=== PATIENT | female | born 1975 | race Caucasian/White ===

== ENCOUNTER 2019-08-19 | Inpatient (IN) | payer MEDICARE, OTHER ==
[~2019-08-19] MED LIST: ABILIFY10 MG OR; ACETTAB3 OR; AMBIEN5 MG OR; ANAPROX DS550 MG OR; ATIVAN0.5 MG OR; BACTRIM DS1 TAB OR; CEPHALEXIN500 MG PO; CIPRO500 MG OR; CLEOCIN150 M1 PO; COUMADIN1 MG OR; COUMADIN10 MG OR; COUMADIN10 MG PO; COUMADIN5 MG PO; COUMADIN7.5 MG PO; DIGITEK0.25 MG OR; DIGOXIN0.05 MG/ML OR; DIGOXIN0.25 MG PO; FIORICET OR; FIORICET PO; FLAGYL500 MG OR; FLEXERIL OR; FLUOXETINE40 MG OR; FLUOXETINE40 MG PO; FOLIC ACID1 MG PO; IMITREX25 MG PO; LAMICTAL100 MG PO; LAMICTAL200 M1 OR; LAMICTAL200 M1 PO; LAMICTAL200 MG OR; LAMICTAL25 M1 OR; LANOXIN0.25 MG OR; LASIX 80 MG TAB80 M1 PO; LASIX40 MG PO; LISINOPRIL10 MG PO; LORTAB 5 OR; LORTAB 5/3255 MG PO; LORTAB 7.5 OR; LORTAB5 PO; LOVASTATIN20 M1 PO; LUPIN OR; METHOCARBAM500 MG PO; METHOTREXATE2.5 MG PO; NEURONTIN300 MG OR; NEURONTIN300 MG PO; NORCO1 TA1 PO; PERCOCET1 TA4 PO; PHENERGAN25 MG/TAB PO; PROMETHAZINE25 MG OR; PROZAC20 MG PO; PROZAC40 MG; PROZAC40 MG OR; PROZAC40 MG PO; RELPAX20 MG OR; RESTORIL15 M1 OR; RESTORIL15 MG OR; RESTORIL30 MG OR; RIFADIN300 MG OR; RYBIX ODT50 MG; SARAFEM15 MG OR; SOMA350 MG PO; TEMAZEPAM15 MG OR; TORADOL PO; TRAMADOL HCL50 MG OR; ULTRAM50 M1 PO; ULTRAM50 MG OR; VICODIN ES1 TAB OR; VISTARIL25 MG OR; WARFARIN1 MG PO; WARFARIN5 MG PO; WARFARIN7.5 MG PO; XANAX1 MG OR; XANAX1 MG PO; ZESTRIL5 MG PO; ZOFRAN ODT4 MG OR; ZOFRAN ODT4 MG PO; ZOFRAN4 MG/TAB PO; [UNRECOGNIZED DRUG - OTHER]
[2019-08-19 21:20] LABS: HEMATOCRIT 31.5 % (37.0-47.0); HEMOGLOBIN 10.1 g/dl (12.0-16.0); IMMATURE GRANULOCYTES 0.3 % (0.0-5.0); MEAN CELL VOLUME 84.2 fL CALC (80.0-100.0); MEAN CORPUSCULAR HGB CONC 32.1 g/L CALC (32.0-36.0); NEUT# 5.8 thou/uL (2.00-7.15); RED BLOOD COUNT 3.74 mill/uL (4.20-5.60)
[2019-08-19 21:34] LABS: ALBUMIN 3.9 g/dL (3.2-5.0); ALKALINE PHOSPHATASE 88 u/l (38-126); ANION GAP 10 (6-22 (CALC)); BUN 20 mg/dL (7-17); BUN/CREATININE RATIO 29 (12-20 (CALC)); CARBON DIOXIDE 29 mmol/l (22-30); CHLORIDE 101 mmol/l (95-108); CREATININE 0.7 mg/dL (0.5-1.0); GFR > 60 ML/MIN (>=60 (CALC)); GFR FOR AFR.AMER. > 60 ML/MIN (>=60 (CALC)); POTASSIUM 3.6 mmol/l (3.5-5.1); SGOT/AST 31 u/l (14-36); SODIUM 137 mmol/l (137-146); TOTAL PROTEIN 7.1 g/dL (6.3-8.2)
[2019-08-19 21:40] LABS: BILIRUBIN, TOTAL 0.6 mg/dL (0.0-1.4)
[2019-08-19 21:47] LABS: MYOGLOBIN 17 ng/mL (0 - 62)
[2019-08-19] MEDS ORDERED: METHOCARBAM750 MG PO (22:34)
[2019-08-19] MEDS ORDERED: CARVEDILOL6.25 MG PO (22:35)
[2019-08-19] MEDS ORDERED: ALEVE220 M2 PO (22:36)
[2019-08-20] VITALS (26 sets, daily range): BP systolic 84–132; BP diastolic 57–87
[2019-08-20 07:45] LABS: INTERNATIONAL NORMALIZED RATIO 2.8 RATIO (0.7-1.3); PROTHROMBIN TIME 28.2 SECONDS (9.0-12.5)
[2019-08-20 11:37] LABS: ALKALINE PHOSPHATASE 67 u/l (38-126); BUN 19 mg/dL (7-17); BUN/CREATININE RATIO 35 (12-20 (CALC)); CHLORIDE 107 mmol/l (95-108); CREATININE 0.5 mg/dL (0.5-1.0); GFR > 60 ML/MIN (>=60 (CALC)); GFR FOR AFR.AMER. > 60 ML/MIN (>=60 (CALC)); POTASSIUM 3.5 mmol/l (3.5-5.1); SGOT/AST 22 u/l (14-36); SODIUM 135 mmol/l (137-146); TOTAL PROTEIN 5.7 g/dL (6.3-8.2)
[2019-08-20 11:49] LABS: ANION GAP 10 (6-22 (CALC)); BILIRUBIN, TOTAL 0.2 mg/dL (0.0-1.4); CARBON DIOXIDE 22 mmol/l (22-30)
[2019-08-21] VITALS (18 sets, daily range): BP systolic 91–121; BP diastolic 57–81
[2019-08-21 05:52] LABS: HEMATOCRIT 30.4 % (37.0-47.0); HEMOGLOBIN 9.8 g/dl (12.0-16.0); MEAN CELL VOLUME 85.2 fL CALC (80.0-100.0); MEAN CORPUSCULAR HGB 27.5 pG CALC (26.0-32.0); MEAN CORPUSCULAR HGB CONC 32.2 g/L CALC (32.0-36.0); RED BLOOD COUNT 3.57 mill/uL (4.20-5.60); RED CELL DISTRI WIDTH 15.8 % (11.5-15.5)
[2019-08-21 06:08] LABS: INTERNATIONAL NORMALIZED RATIO 2.6 RATIO (0.7-1.3); PROTHROMBIN TIME 26.4 SECONDS (9.0-12.5)
[2019-08-21 06:21] LABS: ALBUMIN 3.2 g/dL (3.2-5.0); ALKALINE PHOSPHATASE 84 u/l (38-126); BUN 15 mg/dL (7-17); BUN/CREATININE RATIO 30 (12-20 (CALC)); CARBON DIOXIDE 24 mmol/l (22-30); CHLORIDE 107 mmol/l (95-108); CREATININE 0.5 mg/dL (0.5-1.0); GFR > 60 ML/MIN (>=60 (CALC)); GFR FOR AFR.AMER. > 60 ML/MIN (>=60 (CALC)); MAGNESIUM 2.4 mg/dL (1.6-2.3); SGOT/AST 19 u/l (14-36); SODIUM 135 mmol/l (137-146)
[2019-08-21 06:22] LABS: ANION GAP 8 (6-22 (CALC)); BILIRUBIN, TOTAL 0.4 mg/dL (0.0-1.4); POTASSIUM 4.4 mmol/l (3.5-5.1)
[2019-08-21 12:02] LABS: COCAINE NEGATIVE (NEGATIVE); METHADONE NEGATIVE (NEGATIVE); TETRAHYDROCANNABIONOL NEGATIVE (NEGATIVE)
[2019-08-21 12:03] LABS: BARBITURATES NEGATIVE (NEGATIVE); OXCYCODONE NEGATIVE (NEGATIVE); TRICYLIC ANTIDEPRESSANTS NEGATIVE (NEGATIVE)
== END 2019-08-21 18:02 | disposition short-term general hospital (02) | DRG 308 ==
PROVIDERS: Emergency Medicine; Internal Medicine; Nurse Practitioner Family; ADMIT Internal Medicine
DX: I48.92 Unspecified atrial flutter (principal); I50.23 Acute on chronic systolic (congestive) heart failure; F17.210 Nicotine dependence, cigarettes, uncomplicated; I45.2 Bifascicular block; F31.9 Bipolar disorder, unspecified; Z95.2 Presence of prosthetic heart valve; Z79.01 Long term (current) use of anticoagulants
CPT/HCPCS: J0282; J3475

== ENCOUNTER 2020-05-29 17:19 | Inpatient (IN) | payer MEDICARE, MEDICAID ==
[~2020-05-29] VITALS: Ht 160 cm; Wt 71.4 kg
[2020-05-29] VITALS (13 sets, daily range): BP systolic 95–135; BP diastolic 20–68
--- NOTE | 2020-05-29 17:15 | NUR ---
PT TO ICU 6 VIA EMS STRETCHER. REPORT WAS RECEIVED FROM DAYANA AT [facility]. ADMISSION ASSESSMENT COMPLETED AT THIS TIME. #20 RAC WITH PROTONIX GTT INFUUSING AT THIS TIME. PT IS ALERT AND ORIENTED X3. ORIENTED TO ROOM AND UNIT. DISCUSSED PLAN OF CARE. PT VERBALIZED UNDERSTANDING. CALL LIGHT IN REACH. WILL CONTINNUE TO MONITOR.
[~2020-05-29 17:19] MED LIST changes: +ALEVE220 M2 PO; +CARVEDILOL6.25 MG PO; -COUMADIN5 MG PO; -LASIX 80 MG TAB80 M1 PO; +LASIX 80 MG TAB80 MG PO; +METHOCARBAM750 MG PO
--- NOTE | 2020-05-29 17:37 | NUR ---
COVID NASAL SWAB OBTAINED FROM BOTH NARES URINE SAMPLE ALSO OBTAINED. PT TOLERATED SWAB WELL.
--- NOTE | 2020-05-29 17:45 | NUR ---
LAB AT BEDSIDE FOR ADMISSION LABS
--- NOTE | 2020-05-29 17:55 | NUR ---
DR LAURA AT BEDSIDE AT THIS TIME.
[2020-05-29 18:27] LABS: URINE BILIRUBIN - DIPSTICK NEGATIVE (NEGATIVE); URINE BLOOD DIPSTICK LARGE (NEGATIVE); URINE CLARITY CLEAR; URINE COLOR YELLOW; URINE GLUCOSE - DIPSTICK NEGATIVE (NEGATIVE); URINE KETONE NEGATIVE (NEGATIVE); URINE LEUK ESTERASE TRACE (Negative); URINE NITRITE - DIPSTICK NEGATIVE (Negative); URINE PH 5.5 (4.5-8.0); URINE PROTEIN - DIPSTICK NEGATIVE (NEG-TRACE); URINE UROBILINOGEN - DIPSTICK 0.2 E.U./dL (0.2)
[2020-05-29 18:34] LABS: ALBUMIN 2.8 g/dL (3.2-5.0)
[2020-05-29 18:39] LABS: IMMATURE GRANULOCYTES 0.7 % (0.0-5.0); MEAN CELL VOLUME 81.6 fL CALC (80.0-100.0); MEAN CORPUSCULAR HGB 26.3 pG CALC (26.0-32.0); MEAN CORPUSCULAR HGB CONC 32.3 g/dL CAL (32.0-36.0); NEUT# 6.79 thou/uL (2.00-7.15); RED BLOOD COUNT 2.66 mill/uL (4.20-5.60); RED CELL DISTRI WIDTH 17.2 % (11.5-15.5)
[2020-05-29 18:40] LABS: URINE SQUAMOUS EPITHELIAL CELL FEW EPI/hpf (0-FEW); URINE WBC 0-2 WBC/hpf (0-5)
[2020-05-29 18:42] LABS: HEMATOCRIT 21.7 % (37.0-47.0)
[2020-05-29 18:48] LABS: BILIRUBIN, TOTAL 1.1 mg/dL (0.0-1.4); CREATININE 1.5 mg/dL (0.5-1.0); POTASSIUM 3.3 mmol/l (3.5-5.1)
--- NOTE | 2020-05-29 19:30 | NUR ---
awake. nad. no active bleeding @ present. o2 cont per nc. monitoring and evaluation advisor shows sinus tach ivcd hr 102. #20 rac. protonix gtt infusing @ 10cchr. no po intake @ present. voids per bsc. fall & air/contact precautions cont. reswabbed for covid per request of landon in lab.
--- NOTE | 2020-05-29 20:21 | NUR ---
xanax 1mg po given per request for anxiety. #1 unit ffp began.
--- NOTE | 2020-05-29 21:37 | NUR ---
#2 unit ffp began.
--- NOTE | 2020-05-29 22:13 | NUR ---
#1 unit ffp infused.
--- NOTE | 2020-05-29 22:30 | NUR ---
#2 unit ffp infused.
--- NOTE | 2020-05-29 22:45 | NUR ---
[phone] attempted to get prbc from lab. forestry farm laborer unable to issue thru computor. will call manager cath lab then call this jingle writer back.
--- NOTE | 2020-05-29 23:10 | NUR ---
incinerator plant laborer called this auto service writer. blood is ready.
--- NOTE | 2020-05-29 23:18 | NUR ---
#1 unit blood began.
[2020-05-30] VITALS (31 sets, daily range): BP systolic 76–140; BP diastolic 50–76
--- NOTE | 2020-05-30 01:17 | NUR ---
#2 unit blood began.
--- NOTE | 2020-05-30 01:47 | NUR ---
#2 unit blood began.
--- NOTE | 2020-05-30 01:50 | NUR ---
up to bsc. renzo well. then back to bed.
--- NOTE | 2020-05-30 02:00 | NUR ---
pt called. requested diaper to be put on. said "i'm tired of getting up all the time." diaper on per nurse general duty.
--- NOTE | 2020-05-30 04:00 | NUR ---
eyes closed. no distress. desk monitor shows sinus tach ivcd hr 104.
--- NOTE | 2020-05-30 06:00 | NUR ---
up to bsc. pt has started her menstrual cycle & blood is on her diaper. mesh underwear & feminine pads given.
[2020-05-30 06:32] LABS: HEMATOCRIT 23.8 % (37.0-47.0); HEMOGLOBIN 7.8 g/dl (12.0-16.0); MEAN CELL VOLUME 81.2 fL CALC (80.0-100.0); MEAN CORPUSCULAR HGB 26.6 pG CALC (26.0-32.0); MEAN CORPUSCULAR HGB CONC 32.8 g/dL CAL (32.0-36.0); RED BLOOD COUNT 2.93 mill/uL (4.20-5.60); RED CELL DISTRI WIDTH 17.4 % (11.5-15.5)
--- NOTE | 2020-05-30 06:45 | NUR ---
REPORT RECIEVED FROM ROHITH RODRIGUEZ. CARE ASSUMED.
[2020-05-30 06:55] LABS: CREATININE 1.3 mg/dL (0.5-1.0); POTASSIUM 3.2 mmol/l (3.5-5.1)
--- NOTE | 2020-05-30 07:05 | NUR ---
DR LAURA AT BEDSIDE AT THIS TIME.
[2020-05-30 07:09] LABS: INTERNATIONAL NORMALIZED RATIO 1.1 RATIO (0.7-1.3); PROTHROMBIN TIME 11.2 SECONDS (9.0-12.5)
--- NOTE | 2020-05-30 07:30 | NUR ---
PT RESTING IN BED AWAKE. PT IS ALERT AND ORIENTED X3. SHIFT ASSESSMENT COMPLETED AT THIS TIME. IV PATENT X1. VSS ON MONITOR. CALL LIGHT IN REACH. WILL CONTINUE TO MONITOR.
--- NOTE | 2020-05-30 07:32 | NUR ---
DR KAMARA AND DR JAUREGUI NOTIFIED OF CONSULTS.
--- NOTE | 2020-05-30 08:34 | NUR ---
1 UNIT OF PRBCS INFUSING AT THIS TIME.
[2020-05-30] MEDS ORDERED: TOPROL XL25 M1 PO (08:52)
[2020-05-30] MEDS ORDERED: TEMAZEPAM30 MG PO (08:53)
--- NOTE | 2020-05-30 09:30 | NUR ---
NAZARIO BORGES ASSISTING PATIENT IN HYGIENE CARE.
--- NOTE | 2020-05-30 10:00 | NUR ---
PT RESTING IN BED AWAKE. RESP ARE EVEN AND UNLABORED. NO DISTRESS NOTED.VSS ON MONITOR. CALL LIGHT IN REACH. WILL CONTINUE TO MONITOR.
--- NOTE | 2020-05-30 11:15 | NUR ---
BLOOD TRANSFUSION COMPLETED AT THIS TIME. PT TOLERATED WELL.
--- NOTE | 2020-05-30 12:00 | NUR ---
PT RESTING IN BED AWAKE. RESP ARE EVEN AND UNLABORED. NO DISTRESS NOTED. VSS ON MONITOR. CALL LIGHT IN REACH. WILL CONTINUE TO MONITOR.
--- NOTE | 2020-05-30 14:00 | NUR ---
PT RESTING IN BED AWAKE. NO DISTRESS NOTED. RESP ARE EVEN AND UNLABORED. VSS ON MONITOR. CALL LIGHT IN REACH. WILL CONTINUE TO MONITOR.
--- NOTE | 2020-05-30 16:00 | NUR ---
PT RESTING IN BED WITH EYES CLOSED. PT HAS HAD MULTIPLE LOOSE STOOLS. RESP ARE EVEN AND UNLABORED. VSS ON [facility]. CALL LIGHT IN REACH. WILL CONTINUE TO MONITOR
--- NOTE | 2020-05-30 16:50 | NUR ---
LAB AT BEDSIDE FOR CBC AT THIS TIME.
--- NOTE | 2020-05-30 17:03 | NUR ---
MORGAN GOVEA APRN AT BEDSIDE AT THIS TIME.
[2020-05-30 17:12] LABS: HEMATOCRIT 26.2 % (37.0-47.0); HEMOGLOBIN 8.9 g/dl (12.0-16.0); MEAN CELL VOLUME 81.6 fL CALC (80.0-100.0); MEAN CORPUSCULAR HGB 27.7 pG CALC (26.0-32.0); RED BLOOD COUNT 3.21 mill/uL (4.20-5.60); RED CELL DISTRI WIDTH 17.1 % (11.5-15.5)
--- NOTE | 2020-05-30 18:08 | NUR ---
PT RESTING IN BED WITH EYES CLOSED. RESP ARE EVEN AND UNLABORED. NO DISTRESS NOTED. CALL LIGHT IN REACH. WILL CONTINUE TO MONTIOR.
--- NOTE | 2020-05-30 20:01 | NUR ---
WRITTEN REPORT RECEIVED. ASSUMED PT CARE.
--- NOTE | 2020-05-30 20:39 | NUR ---
PT MEDICATED ORDERED. LOW GRADE TEMP OF 100.2 NOTED. PT C/O GENERALIZED MUSCLE ACHES AND PAINS, REQUESTING PERCOCET AT THIS TIME. NO CURRENT ORDERS FOR TEMP OR PAIN WILL NOTIFY AQUATIC PHYSIOTHERAPIST PHYSICIAN. HEAVY BLANKETS REMOVED AND ENCOURAGED REPOSITIONING AT THIS TIME. PT ALERT AND ORIENTED X3. NO APPARENT DISTRESS NOTED. DISCUSSED POC. PT VERBALIZED UNDERSTANDING. MONITORS IN PLACE. CALL LIGHT WITHIN REACH. WILL CONTINUE TO MONITOR.
--- NOTE | 2020-05-30 21:58 | NUR ---
PAIN MEDICATION ORDER RECEIVED. MANUFACTURING LEAD WENT TO NOTIFY PT. PT NOTED SNORING IN BED, DIFFICULT TO AROUSE. PT WAKES, ORIENTED X3. CURRENT BP 94/64, PT REMAINS DROWSY WILL HOLD PAIN MEDICATION AT THIS TIME. CURRENT TEMP 98.5. CALL LIGHT WITHIN REACH. WILL CONTINUE TO MONITOR.
--- NOTE | 2020-05-30 23:31 | NUR ---
PT RESTING IN BED WITH EYES CLOSED, SNORING. NO APPARENT DISTRESS NOTED. RESPIRATIONS EVEN AND UNLABORED. VSS. PROTONIX GTT INFUSING WITHOUT DIFFICULTY. MONITORS REMAIN IN PLACE. CALL LIGHT WITHIN REACH. WILL CONTINUE TO MONITOR.
[2020-05-31] VITALS (10 sets, daily range): BP systolic 91–122; BP diastolic 54–70
--- NOTE | 2020-05-31 01:49 | NUR ---
PT RESTING IN BED WITH EYES CLOSED. NO APPARENT DISTRESS NOTED. IV ALARM SOUNDING, IV SITE POSITIONAL DUE TO ARM BENT. INSTRUCTED PT TO STRAIGHTEN ARM, PT DID SO AT THIS TIME. RESPIRATIONS EVEN AND UNLABORED. MONITORS IN PLACE. VSS. PROTONIX GTT INFUSING. CALL LIGHT WITHIN REACH. WILL CONTINUE TO MONITOR.
[2020-05-31 06:39] LABS: HEMOGLOBIN 10.8 g/dl (12.0-16.0); MEAN CORPUSCULAR HGB 31.6 pG CALC (26.0-32.0); MEAN CORPUSCULAR HGB CONC 32.2 g/dL CAL (32.0-36.0); RED BLOOD COUNT 3.42 mill/uL (4.20-5.60); RED CELL DISTRI WIDTH 14.2 % (11.5-15.5)
[2020-05-31 06:40] LABS: HEMATOCRIT 33.5 % (37.0-47.0)
[2020-05-31 06:55] LABS: INTERNATIONAL NORMALIZED RATIO 1.1 RATIO (0.7-1.3)
[2020-05-31 06:59] LABS: BUN 15 mg/dL (7-17); BUN/CREATININE RATIO 20 (12-20 (CALC)); CHLORIDE 107 mmol/l (95-108); CREATININE 0.7 mg/dL (0.5-1.0); GFR > 60 ML/MIN (>=60 (CALC)); GFR FOR AFR.AMER. > 60 ML/MIN (>=60 (CALC)); POTASSIUM 2.9 mmol/l (3.5-5.1)
[2020-05-31 07:04] LABS: ANION GAP 6 (6-22 (CALC)); CARBON DIOXIDE 32 mmol/l (22-30); SODIUM 142 mmol/l (137-146)
--- NOTE | 2020-05-31 09:00 | NUR ---
PT AWAKE, ALERT, ORIENTED X 3. LUNGS CLEAR, 2 POULTRY OFFAL ICER NC PRN. PT HAS FINISHED GOLYTELY AND IS WAITING FOR EGD. NO FURTHER BLEEDING PER PT. PT SEEN BY DR LAURA AND DR KAMARA THIS AM.
--- NOTE | 2020-05-31 12:46 | NUR ---
PT TAKEN TO ENDOSCOPY EARLIER, STILL THERE. PT LEFT IN STABLE CONDITION.
--- NOTE | 2020-05-31 16:35 | NUR ---
PT BACK FROM [facility], FED SINCE SHE WAS HUNGRY. NO COMPLAINT OF PAIN, NO DISTRESS NOTED. PT PLACED ON 2 LPM HER SATS WERE LOW 90s OTHERWISE.
--- NOTE | 2020-05-31 19:05 | NUR ---
REPORT FROM KALPANA ZAMARRIPA. ASSUMED PT CARE.
--- NOTE | 2020-05-31 20:35 | NUR ---
ASSESSMENT COMPLETE. PT ALERT AND ORIENTED. NO APPARENT DISTRESS NOTED. RESPIRATIONS EVEN AND UNLABORED. MEDICATED FOR GENERALIZED PAIN AND LOW GRADE TEMP 99.8. HEAVY BLANKETS REMOVED AND AC TURNED DOWN IN ROOM. PT ON 2L/M VIA ID. MONITORS IN PLACE. GATORADE PROVIDED. NO OTHER WANTS OR NEEDS NOTED. CALL LIGHT WITHIN REACH. WILL CONTINUE TO MONITOR.
--- NOTE | 2020-05-31 22:24 | NUR ---
PT SITTING UP IN BED ON CELL PHONE. NO APPARENT DISTRESS NOTED. RESPIRATIONS EVEN AND UNLABORED. MONITORS IN PLACE. CALL LIGHT WITHIN REACH. WILL CONTINUE TO MONITOR.
[2020-06-01] VITALS (14 sets, daily range): BP systolic 88–114; BP diastolic 55–65
--- NOTE | 2020-06-01 00:29 | NUR ---
PT RESTING IN BED WITH EYES CLOSED. NO APPARENT DISTRESS NOTED. RESPIRATIONS EVEN AND UNLABORED. PROTONIX GTT INFUSING WITHOUT DIFFICULTY. MONITORS IN PLACE. CALL LIGHT WITHIN REACH. WILL CONTINUE TO MONITOR.
[2020-06-01 05:56] LABS: INTERNATIONAL NORMALIZED RATIO 1.6 RATIO (0.7-1.3); PROTHROMBIN TIME 15.4 SECONDS (9.0-12.5)
--- NOTE | 2020-06-01 07:15 | NUR ---
REPORT RECEIVED FROM MICHAEL MCDUFFIE. PT RESTING IN BED SEMI FOWLERS WITH EYES CLOSED; RESPIRATIONS ARE LABORED ON ROOM AIR WITH NASAL CANNULA RESTING ON CHEST; ACESSORY MUSCLES IN USE AND SPO2 79-80%. PT AWAKENS TO VERBAL STIMULI AND OXYGEN REAPPLIED AT 2L VIA NC; PT REPORTS THAT SHE JUST REMOVED IT TO BLOW HER NOSE AND SHE FELL ASLEEP. SPO2 INCREASED TO 93-94% ON OXYGEN. PT C/O SORE THROAT, BUT DENIES ANY PAIN AND DENIES SOB. C/O MILD NAUSEA. REQUESTS PERCOCET AND XANAX; STATES THAT THE PERCOCET WILL ALSO HELP HER RELAX. POC REVIEWED. PT ENCOURAGED TO VERBALIZE CONCERNS. STATES UNDERSTANDING. SAFETY MEASURES IN PLACE. CALL LIGHT WITHIN REACH.
--- NOTE | 2020-06-01 07:20 | NUR ---
DR. LAURA AT BEDSIDE. NEW ORDERS RECEIVED.
--- NOTE | 2020-06-01 08:23 | NUR ---
RADIOLOGY AT BEDSIDE FOR PORTABLE CHEST XR.
[2020-06-01 08:27] LABS: HEMOGLOBIN 8.9 g/dl (12.0-16.0); MEAN CORPUSCULAR HGB 27.5 pG CALC (26.0-32.0); MEAN CORPUSCULAR HGB CONC 32.5 g/dL CAL (32.0-36.0); RED BLOOD COUNT 3.24 mill/uL (4.20-5.60); RED CELL DISTRI WIDTH 17.7 % (11.5-15.5)
[2020-06-01 08:44] LABS: HEMATOCRIT 27.4 % (37.0-47.0); MEAN CELL VOLUME 84.6 fL CALC (80.0-100.0)
--- NOTE | 2020-06-01 09:05 | NUR ---
PT UP TO BSC AND NOW SITTING UP ON EDGE OF BED ON ROOM AIR; SPO2 95% ON ROOM AIR. PT STATES, "SEE LONG IM UP, MOVING AROUND, AND TALKING IM OK. IT'S ONLY WHEN IM NOT MOVING AROUND THAT MY SATS DROP." WILL CONTINUE TO MONITOR ON ROOM AIR. AM MEDS GIVEN INCLUDING PERCOCET AND XANAX PER REQUEST. PT ON LIGHT MENSTRUAL CYCLE.
[2020-06-01 09:58] LABS: ANION GAP 11 (6-22 (CALC)); BUN 14 mg/dL (7-17); BUN/CREATININE RATIO 15 (12-20 (CALC)); CARBON DIOXIDE 27 mmol/l (22-30); CHLORIDE 101 mmol/l (95-108); GFR 60 ML/MIN (>=60 (CALC)); GFR FOR AFR.AMER. > 60 ML/MIN (>=60 (CALC)); SODIUM 135 mmol/l (137-146)
[2020-06-01 10:05] LABS: POTASSIUM 3.7 mmol/l (3.5-5.1)
--- NOTE | 2020-06-01 10:52 | NUR ---
PT REPOSITIONED HERSELF INTO SEMI FOWLERS AND FELL ASLEEP ON ROOM AIR; SPO2 DECREASED TO 85%. 2L NC REAPPLIED; CURRENTLY 96% ON O2.
--- NOTE | 2020-06-01 13:36 | NUR ---
PT REQUESTING PERCOCET AND XANAX FOR LOWER ABDOMINAL PAIN AND TO HELP HER RELAX. GIVEN AT THIS TIME. NEW ORDER RECEIVED FOR STOOL SOFTNERS.
--- NOTE | 2020-06-01 15:19 | NUR ---
COVID SWAB OBTAINED DUE TO CHEST XRAY RESULTS AND HYPOXIA. PT PLACED ON AIRBORNE/CONTACT PRECAUTIONS PENDING SWAB RESULTS. MIRALAX GIVEN FOR C/O POSSIBLE CONSIPATION.
--- NOTE | 2020-06-01 18:00 | NUR ---
PT SITTING UP ON EDGE OF BED EATING DINNER. REQUESTING HER EVENING MEDICATIONS SO SHE CAN GO TO SLEEP. WILL PASS ON TO EXPELLER OPERATOR.
--- NOTE | 2020-06-01 19:03 | NUR ---
REPORT FROM DEE ZAMARRIPA. ASSUMED PT CARE.
--- NOTE | 2020-06-01 19:22 | NUR ---
PT REATTACHED TO MONITORS, O2 APPLIED UPON REQUEST. WARM BLANKET PROVIDED, AFERILE AT THIS TIME. PT ALERT AND ORIENTED. NO APPARENT DISTRESS NOTED. RESPIRATIONS EVEN AND UNLABORED. BSC EMPTIED, X3 VOIDS PER PT. CALL LIGHT WITHIN REACH. WILL CONTINUE TO MONITOR.
[2020-06-02] VITALS (20 sets, daily range): BP systolic 85–108; BP diastolic 49–63
--- NOTE | 2020-06-02 00:22 | NUR ---
PT NOTED UP WALKING AROUND IN ROOM. MONITORS REMAIN IN PLACE. LOW GRADE TEMP OF 99.0. O2 @ 2L/M VIA NC, SAT 96%. RESPIRATIONS EVEN AND UNLABORED. MEDICATED FOR GENERALIZED PAIN. FRESH WATER AND JUICE PROVIDED UPON REQUEST. CALL LIGHT WITHIN REACH. WILL CONTINUE TO MONITOR.
[2020-06-02 06:16] LABS: HEMATOCRIT 25.3 % (37.0-47.0); HEMOGLOBIN 8.1 g/dl (12.0-16.0); MEAN CELL VOLUME 85.8 fL CALC (80.0-100.0); MEAN CORPUSCULAR HGB 27.5 pG CALC (26.0-32.0); RED BLOOD COUNT 2.95 mill/uL (4.20-5.60); RED CELL DISTRI WIDTH 17.4 % (11.5-15.5)
[2020-06-02 06:30] LABS: ANION GAP 10 (6-22 (CALC)); BUN 12 mg/dL (7-17); BUN/CREATININE RATIO 12 (12-20 (CALC)); CARBON DIOXIDE 31 mmol/l (22-30); CHLORIDE 98 mmol/l (95-108); GFR 60 ML/MIN (>=60 (CALC)); GFR FOR AFR.AMER. > 60 ML/MIN (>=60 (CALC)); POTASSIUM 3.8 mmol/l (3.5-5.1); SODIUM 135 mmol/l (137-146)
--- NOTE | 2020-06-02 06:33 | NUR ---
PT RESTING IN BED. NO APPARENT DISTRESS NOTED. HOT TEA PROVIDED UPON REQUEST. PT DENIES ANY PAIN OR DISCOMFORT. CALL LIGHT WITHIN REACH. WILL CONTINUE TO MONITOR.
--- NOTE | 2020-06-02 07:17 | NUR ---
REPORT RECEIVED FROM MICHAEL MCDUFFIE. PT RESTING IN BED SUPINE; ALERT AND ORIENTED. DENIES PAIN, SOB, AND NAUSEA. RESPIRATIONS EVEN AND UNLABORED ON OXYGEN 2L VIA NC; SPO2 99%. PT ALSO DENIES ABDOMINAL TENDERNESS SINCE BOWEL MOVEMENT LAST NIGHT. POC REVIEWED. PT ENCOURAGED TO VERBALIZE CONCERNS. STATES UNDERSTANDING. SAFETY MEASURES IN PLACE. CALL LIGHT WITHIN REACH.
--- NOTE | 2020-06-02 07:50 | NUR ---
DR. LAURA AT BEDSIDE.
--- NOTE | 2020-06-02 09:15 | NUR ---
LOSARTAN HELD FOR BP OF 93/60 AND PT REQUESTING PERCOCET AND XANAX. GIVEN WITH AM MEDS.
--- NOTE | 2020-06-02 11:01 | NUR ---
PT FELL ASLEEP ON ROOM AIR; SPO2 DECREASED TO 87%; 2L VIA NC REAPPLIED AND SPO2 NOW 95%. BLOOD PRESSURE DOWN TO 85/51. WILL CONTINUE TO MONITOR.
--- NOTE | 2020-06-02 12:11 | NUR ---
COVID SWAB RESULT IS NEGATIVE. NOW ON STANDARD PRECAUTIONS. PT NOTIFIED.
--- NOTE | 2020-06-02 13:37 | NUR ---
PT AMBULATING IN ROOM TO THE WINDOW; DETACHED HERSELF FROM OXYGEN PROBE, BUT SHED WORKERS SUPERVISOR AND BP CUFF REMAIN IN PLACE. REQUESTING PERCOCET AND XANAX. DUE TO LOW BP THIS MORNING PT EXPLAINED THAT DUE TO SIDE EFFECTS SHE MAY HAVE AND ALTERNATE MEDS; REQUESTS XANAX AT THIS TIME. BP CURRENTLY 108/62 HR 80. SHE ALSO REQUESTS COFFEE. WILL CONTINUE TO MONITOR VS. SAFETY MEASURES REINFORCED.
--- NOTE | 2020-06-02 15:21 | NUR ---
REQUESTING PEROCET FOR MILD GENERALIZED PAIN. BP 97/62; PT ASKED TO USE OTHER NONPHARMACOLOGICAL INTERVENTIONS FOR PAIN DUE TO LOW BP. PT BECOMES AGITATED AND STATES THAT HER BP IS NORMALLY LOW AND SHE TAKES ALL MEDS AT THE SAME TIME AT HOME. NURSE RECOMMENDED ALLOWING MORE TIME SINCE XANAX WAS GIVEN TO ALLOW BLOOD PRESSURE TO INCREASE. PT THEN STATES THAT HER PAIN IS ACTUALLY AN 8/10 IN HER LOWER BACK AND HEAD. SHE GETS OF OUT OF BED AND USES VITAL SIGN MACHINE TO TAKE HER OWN BLOOD PRESSURE AGAIN WHICH NOW READS 105/60 AND STATES, "SEE IT'S GOOD NOW, CAN I GET MY PAIN MEDICINE?" PERCOCET PROVIDED TO PT AT THIS TIME.
--- NOTE | 2020-06-02 15:46 | NUR ---
PT CLEANED HERSELF UP INDEPENDENTLY. LINENS CHANGED. REQUESTING COFFEE.
--- NOTE | 2020-06-02 17:25 | NUR ---
DECLINED IV SITE REPLACEMENT; DRESSING CHANGED; IV SITE DOES APPEAR HEALTHY AND FLUSH WELL.
--- NOTE | 2020-06-02 19:30 | NUR ---
awake. nad. o2 off @ present. pvc monitor shows sinus rhythm 1st degree avb ivcd hr 73. #20 rac saline lock. abd remains bloated appearing. po fluids taken well. voids per bsc. fall & air/contact precautions cont.
--- NOTE | 2020-06-02 22:00 | NUR ---
eyes closed. nad. patient monitor shows sinus rhythm 1st degree avb ivcd hr 60.
[2020-06-03] VITALS (12 sets, daily range): BP systolic 84–111; BP diastolic 48–67
--- NOTE | 2020-06-03 00:01 | NUR ---
yes closed. no distress. reagent tender helper shows sinus rhythm 1st degree avb ivcd hr 64.
--- NOTE | 2020-06-03 02:00 | NUR ---
resting quietly. resps even & unlabored. no apparent distress.
--- NOTE | 2020-06-03 04:00 | NUR ---
up to bsc. renzo well. engine monitor shows sius rhythm 1st degree avb ivcd hr 84.
--- NOTE | 2020-06-03 04:45 | NUR ---
lab here. blood drawn.
[2020-06-03 05:49] LABS: HEMATOCRIT 28.7 % (37.0-47.0); MEAN CELL VOLUME 87.2 fL CALC (80.0-100.0); MEAN CORPUSCULAR HGB 27.4 pG CALC (26.0-32.0); MEAN CORPUSCULAR HGB CONC 31.4 g/dL CAL (32.0-36.0); RED BLOOD COUNT 3.29 mill/uL (4.20-5.60); RED CELL DISTRI WIDTH 17.6 % (11.5-15.5)
[2020-06-03 05:57] LABS: INTERNATIONAL NORMALIZED RATIO 1.3 RATIO (0.7-1.3); PROTHROMBIN TIME 12.8 SECONDS (9.0-12.5)
[2020-06-03 06:05] LABS: ALBUMIN 2.9 g/dL (3.2-5.0); ALKALINE PHOSPHATASE 212 u/l (38-126); ANION GAP 12 (6-22 (CALC)); BILIRUBIN, TOTAL 0.8 mg/dL (0.0-1.4); BUN 18 mg/dL (7-17); BUN/CREATININE RATIO 18 (12-20 (CALC)); CARBON DIOXIDE 32 mmol/l (22-30); CHLORIDE 100 mmol/l (95-108); GFR 60 ML/MIN (>=60 (CALC)); GFR FOR AFR.AMER. > 60 ML/MIN (>=60 (CALC)); POTASSIUM 4.1 mmol/l (3.5-5.1); SGOT/AST 19 u/l (14-36); SODIUM 140 mmol/l (137-146); TOTAL PROTEIN 5.9 g/dL (6.3-8.2)
--- NOTE | 2020-06-03 08:00 | NUR ---
PATIENT RESTING COMFORTABLY. NO SIGNS OR SYMPTOMS OF DISTRESS. PATIENT REQUESTS PAIN MEDICATION AND XANAX,
--- NOTE | 2020-06-03 11:23 | NUR ---
DR KAMARA CALLED AND SAID HE SAW SMALL MULTIPLE ULCERS IN THE EGD.
--- NOTE | 2020-06-03 15:40 | NUR ---
IV REMOVED FROM PATIENT. SITE WAS LOST AND MD VALDES TO REMAIN IV FREE FOR DURATIION OF HOSPITAL ADMISSION.
--- NOTE | 2020-06-03 15:50 | NUR ---
REPORT REC FROM LEATHA ZAMARRIPA
--- NOTE | 2020-06-03 15:57 | NUR ---
CARE RESUMED BY THIS SERVICE PROVIDER. PT A&O X3. NO DISTRESS NOTED. ORIENTED PT TO ROOM. CALL LIGHT IN REACH. CONTINUE TO MONITOR.
--- NOTE | 2020-06-03 23:38 | NUR ---
PATIENT AWAKE ALERT AND ORIENTED AT THIS TIME JUST FINISHING HER DINNER. PATIENT WITH N O COMPLAINTS AT THIS TIME. PATIENT REQUESTING SOME MORE GATORADE AND COFFEE. PATIENT STATES THAT SHE DID HAVE A BM TODAY AND THAT THEY ARE BECOMING MORE "NORMAL". DENIES ANY DIFFICULTY WITH URINATION. NO IV SITE AT THIS TIME. ANXIOUS FOR DISCHARGE HOME POSSIBLY TOMMORROW. SAFETY PRECAUTIONS REINFORCED. CALL LIGHT IN REACH. WILL CONT TO MONITOR.
[2020-06-04] VITALS (9 sets, daily range): BP systolic 85–105; BP diastolic 52–64
--- NOTE | 2020-06-04 00:23 | NUR ---
PATIENT RESTING IN BED-O2 APPLIED HER O2 SATS WERE IN THE HI 80'S-LOW 90'S ON RA. PATIENT MEDICATED FOR GENERALIZED PAIN WITH PERCOCET 7/10 ON PAIN SCALE. CALL LIGHT IN REACH. WILL CONT TO MONITOR.
--- NOTE | 2020-06-04 02:42 | NUR ---
PATIENT AWAKE ALERT AND ORIENTEDX3. JUST FINISHED HER DINNER-TOLERATED WELL. PATIENT WITH NO COMPLAINTS AT THIS TIME-REQUESTING SOME MORE GATORADE AND COFFEE. PATIENT STATES THAT SHE DID HAVE A BM TODAY AND THAT THEY ARE MORE "NORMAL". DENIES ANY DIFFICULTY WITH URINATION. NO IV SITE. NAXIOUS FOR POSSIBLE DISCHARGE HOME TOMMOROW. SAFETY PRECAUTIONS REINFORCED. CALL LIGHT IN REACH. WILL CONT TO MONITOR.
--- NOTE | 2020-06-04 04:57 | NUR ---
PATIENT APPEARS SLEEPING AT THIS TIME-RESPS ARE EVEN ANDUNLABORED. CALL LIGHT IN REACH. WILL CONT TO MONITOR.
[2020-06-04 05:24] LABS: HEMOGLOBIN 7.5 g/dl (12.0-16.0); MEAN CELL VOLUME 87.9 fL CALC (80.0-100.0); MEAN CORPUSCULAR HGB 27.5 pG CALC (26.0-32.0); MEAN CORPUSCULAR HGB CONC 31.3 g/dL CAL (32.0-36.0); NEUT# 7.72 thou/uL (2.00-7.15); RED BLOOD COUNT 2.73 mill/uL (4.20-5.60); RED CELL DISTRI WIDTH 18.2 % (11.5-15.5)
[2020-06-04 05:40] LABS: INTERNATIONAL NORMALIZED RATIO 1.5 RATIO (0.7-1.3); PROTHROMBIN TIME 14.4 SECONDS (9.0-12.5)
[2020-06-04 05:46] LABS: CREATININE 1.3 mg/dL (0.5-1.0); POTASSIUM 4.2 mmol/l (3.5-5.1)
--- NOTE | 2020-06-04 07:00 | NUR ---
REPORT RECEIVED FROM DALLIN OSORIO.
--- NOTE | 2020-06-04 08:10 | NUR ---
PT RESTING IN SEMI FOWLERS POSITION,A&O X3;VS OBTAINED AND ASSESSMENT COMPLETED;PT REPORTS GENERALIZED PAIN RATING 10/10 ON THE PAIN SCALE AND ANXIETY, PT TO BE MEDICATED WITH PRN XANAX 1MG AND PERCOCET 5/325MG PO;RESPIRATIONS EVEN AND UNLABORED ON RA,DIMINISHED LUNG SOUNDS NOTED;ABDOMEN SOFT ON PALPATION AND ACTIVE IN ALL 4 QUADRANTS;STRONG PEDAL PULSES;SKIN INTACT;NO IV SITE, MD AWARE;PT DENIES ANY ADDITIONAL NEEDS AT THIS TIME AND IS ENCOURAGED TO CALL FOR ASSISTANCE IF NEEDED;FALL PRECAUTIONS IN PLACE WITH BED IN THE LOWEST POSITION AND CALL LIGHT IN REACH;WILL CONTINUE TO MONITOR
--- NOTE | 2020-06-04 10:43 | NUR ---
INFORMED CONSENT OBTAINED TO TRANSFUSE BLOOD AND/OR BLOOD PRODUCTS. ALL S/S OF A TRANSFUSION REACTION DISCUSSED AT THIS TIME AND PT VERBALIZES UNDERSTANDING. #22G STARTED TO RAC ON 1ST ATTEMPT BY THIS WRITTER AND PT TOLERATED WELL.NS STARTED AT THIS TIME;PT DENIES ANY ADDITIONAL NEEDS;CALL LIGHT IN REACH;WILL CONTINUE TO MONITOR
--- NOTE | 2020-06-04 11:19 | NUR ---
PT RESTING IN SEMI FOWLERS POSITION;RESPIRATIONS EVEN AND UNLABORED ON RA;PT DENIES ANY CURRENT PAIN OR DISCOMFORTS;PRBC'S STARTED AT THIS TIME WITH VERIFICATION BY DALLIN WASSERMAN;ALL S/S OF TRANSFUSION REACTION DISCUSSED ONCE AGAIN WITH PT;WRITTER TO REMAIN AT BEDSIDE FOR INITIAL 15 MINS PER [facility] PROTOCAL;WILL CONTINUE TO MONITOR
--- NOTE | 2020-06-04 11:22 | NUR ---
AT BEDSIDE DISCUSSING POC.
--- NOTE | 2020-06-04 11:34 | NUR ---
PT RESTING IN SEMI FOWLERS POSITION;RESPIRATIONS REMAIN EVEN AND UNLABORED ON RA;PT DENIES ANY CURRENT NEEDS OR S/S OF TRANSFUSION REACTION;VS OBTAINED;PT ENCOURAGED TO CALL FOR ASSISTANCE IF NEEDED;CALL LIGHT IN REACH;WILL CONTINUE TO MONITOR
--- NOTE | 2020-06-04 12:19 | NUR ---
PT TOLERATING UNIT OF PRBC'S WITH EASE;PT DENIES ANY S/S OF TRANSFUSION REACTION;RESPIRATIONS EVEN AND UNLABORED ON RA;PT DENIES ANY CURRENT NEEDS;CALL LIGHT IN REACH;WILL CONTINUE TO MONITOR
--- NOTE | 2020-06-04 13:19 | NUR ---
PT REPORTS GENERALIZED PAIN RATING 8/10 ON THE PAIN SCALE AND REQUESTS PAIN MEDICATION, PT MEDICATED WITH PRN PERCOCET 5/325MG PO;WILL CONTINUE TO MONITOR FOR EFFECTIVESS
--- NOTE | 2020-06-04 14:22 | NUR ---
UNIT OF PRBC'S COMPLETED AT THIS TIME;RESPIRATIONS EVEN AND UNLABORED ON RA;PT REPORTS GENERALIZED PAIN HAS DECREASED TO 4/10 ON THE PAIN SCALE AFTER PAIN MEDICATION ADMINISTRATION;IV SITE PATENT;PT ENCOURAGED TO CALL FOR ASSISTANCE IF NEEDED;CALL LIGHT IN REACH;WILL CONTINUE TO MONITOR
--- NOTE | 2020-06-04 15:50 | NUR ---
PT RESTING AT BEDSIDE PLAYING ON HER PHONE;RESPIRATIONS EVEN AND UNLABORED ON RA;PT DENIES ANY CURRENT PAIN OR DISCOMFORTS;#22G TO RAC REMAINS PATENT;PT ENCOURAGED TO CALL FOR ASSISTANCE IF NEEDED;FALL PRECAUTIONS IN PLACE WITH BED IN THE LOWEST POSITION AND CALL LIGHT IN REACH;WILL CONTINUE TO MONITOR
--- NOTE | 2020-06-04 16:30 | NUR ---
PT REQUESTS PRN XANAX FOR ANXIETY, PT MEDICATED WITH PRN XANAX 1MG PO AT THIS TIME;WILL CONTINUE TO MONITOR
--- NOTE | 2020-06-04 19:43 | NUR ---
PATIENT AWAKE ALERT AND ORIENTEDX3 UP AND ABOUT IN THE ROOM. PATIENT WITH STEADY GAIT. ABD IS SOFTLY DISTENDED WITH ACTIVE BS. STATES THAT SHE IS HAVING BM'S TODAY. DENIES ANY DIFFICULTY WITH URINATION. SALINE LOCK TO RAC INTACT AND APPEARS HEALTHY AT THIS TIME. APPETITE WAS GOOD FOR DINNER AND TOLERATED WELL. DENIES ANY N/V. CALL LIGHT IN REACH. WILL CONT TO MONITOR.
--- NOTE | 2020-06-04 20:58 | NUR ---
HS MEDS GIVEN INCLUDING XANAX FOR ANXIETY PER PATIENT AND PERCOCET 5/325MG FOR 8/10 GENERALIZED PAIN. SALINE LOCK TO RAC FLUSHED WITH NS WITHOUT ANY DIFFICULTY. CALL LIGHT IN REACH. WILL CONT TO MONITOR.
--- NOTE | 2020-06-05 00:06 | NUR ---
PATIENT APPEARS SLEEPING AT THIS TIME. EYES CLOSED AND RESP EVEN AND UNLABORED WITH O2 VIA NASAL CANNULA. CALL LIGHT I N REACH. WILL CONT TO MONITOR.
[2020-06-05 04:00] VITALS: BP 108/64
--- NOTE | 2020-06-05 04:02 | NUR ---
PATIENT RESTING IN BED AT THIS TIME AND APPEARS SLEEPING WITH EYES CLOSED. RESPS ARE EVEN AND UNLABORED. CALL LIGHT IN REACH. WILL CONT TO MONITOR.
[2020-06-05 05:22] LABS: MEAN CELL VOLUME 89.6 fL CALC (80.0-100.0); MEAN CORPUSCULAR HGB 27.5 pG CALC (26.0-32.0); MEAN CORPUSCULAR HGB CONC 30.7 g/dL CAL (32.0-36.0); RED BLOOD COUNT 3.45 mill/uL (4.20-5.60); RED CELL DISTRI WIDTH 17.5 % (11.5-15.5)
[2020-06-05 05:29] LABS: HEMATOCRIT 30.9 % (37.0-47.0); HEMOGLOBIN 9.5 g/dl (12.0-16.0)
[2020-06-05 05:36] LABS: CREATININE 1.2 mg/dL (0.5-1.0); POTASSIUM 4.8 mmol/l (3.5-5.1)
[2020-06-05 05:56] LABS: INTERNATIONAL NORMALIZED RATIO 1.9 RATIO (0.7-1.3); PROTHROMBIN TIME 18.4 SECONDS (9.0-12.5)
--- NOTE | 2020-06-05 07:00 | NUR ---
REPORT RECEIVED FROM DALLIN OSORIO
[2020-06-05 07:49] VITALS: BP 119/56
--- NOTE | 2020-06-05 07:50 | NUR ---
PT RESTING IN SEMI FOWLERS POSITION,A&O X3;VS OBTAINED AND ASSESSMENT COMPLETED;PT REPORTS GENERALIZED PAIN RATING 8/10 ON THE PAIN SCALE AND ANXIETY, PT MEDICATED WITH PRN PERCOCET 5/325MG PO AND XANAX 1MG PO;RESPIRATIONS EVEN AND UNLABORED ON RA,CLEAR LUNG SOUNDS;ABDOMEN DISTENDED/SOFT ON PALPATION AND ACTIVE IN ALL 4 QUADRANTS;STRONG PEDAL PULSES;SKIN INTACT;#22G TO RAC FLUSHED AND PATENT,SITE APPEARS HEALTHY;PT DENIES ANY ADDITIONAL NEEDS AT THIS TIME AND IS ENCOURAGED TO CALL FOR ASSISTANCE IF NEEDED;FALL PRECAUTIONS IN PLACE WITH BED IN THE LOWEST POSITION AND CALL LIGHT IN REACH;WILL CONTINUE TO MONITOR
--- NOTE | 2020-06-05 08:16 | NUR ---
AT BEDSIDE DISCUSSING POC.
--- NOTE | 2020-06-05 11:30 | NUR ---
PT RESTING AT BEDSIDE;RESPIRATIONS EVEN AND UNLABORED ON RA;PT DENIES ANY CURRENT PAIN OR DISCOMFORTS;IV SITE PATENT TO RAC;FRESH COFFEE PROVIDED PER REQUEST;PT DENIES ANY ADDITIONAL NEEDS AT THIS TIME AND IS ENCOURAGED TO CALL FOR ASSISTANCE IF NEEDED;FALL PRECAUTIONS IN PLACE WITH BED IN THE LOWEST POSITION AND CALL LIGHT IN REACH;WILL CONTINUE TO MONITOR
--- NOTE | 2020-06-05 13:37 | NUR ---
PT MEDICATED WITH PRN PERCOCET 5/325MG PO PER REQUEST FOR GENERALIZED PAIN RATING 7/10 ON THE PAIN SCALE,WILL CONTINUE TO MONITOR FOR EFFECTIVENESS
[2020-06-05 15:00] VITALS: BP 104/61
--- NOTE | 2020-06-05 16:50 | NUR ---
PT RESTING AT BEDSIDE;RESPIRATIONS EVEN AND UNLABORED ON RA;PT DENIES ANY CURRENT PAIN OR DISCOMFORTS;PT REPORTS ANXIETY AND REQUESTS XANAX;PT MEDICATED WITH XANAX 1MG PO AT THIS TIME;IV SITE PATENT;PT DENIES ANY ADDITIONAL NEEDS;ENCOURAGED TO CALL FOR ASSISTANCE IF NEEDED;CALL LIGHT IN REACH;WILL CONTINUE TO MONITOR
--- NOTE | 2020-06-05 19:45 | NUR ---
PATIENT RESTING IN BED AT THIS TIME-AWAKE ALERT AND ORIENTEDX3. IV SITE TO RAC INTACT AND APPEARS HEALTHY AT THIS TIME. PATIENT STATES HAVING LOOSE BROWN STOOLS TODAY. APPETITE FOR DINNER GOOD-ATE 100% FROM TRAY. CALL LIGHT IN REACH. WILL CONT TO MONITOR.
[2020-06-05 20:00] VITALS: BP 100/54
--- NOTE | 2020-06-05 23:00 | NUR ---
PATIENT APPEARS SLEEPING POSITIONED ON LEFT SITE. EYES ARE CLOSED. RESPS ARE EVEN AND UNLBORED. APPEARS SLEEPING. CALL LIGHT IN REACH. WILL CONT TO MONITOR.
[2020-06-06 04:00] VITALS: BP 100/54
--- NOTE | 2020-06-06 04:16 | NUR ---
PATIENT APPEARS SLEEPING POSITIONED ON LEFT SIDE AT THIS TIME. RESP ARE EVEN AND UNLABORED. CALL LIGHT IN REACH. WILL CONT TO MONITOR.
[2020-06-06 05:59] LABS: HEMATOCRIT 29.8 % (37.0-47.0); HEMOGLOBIN 9.1 g/dl (12.0-16.0); MEAN CELL VOLUME 89.8 fL CALC (80.0-100.0); MEAN CORPUSCULAR HGB 27.4 pG CALC (26.0-32.0); MEAN CORPUSCULAR HGB CONC 30.5 g/dL CAL (32.0-36.0); RED BLOOD COUNT 3.32 mill/uL (4.20-5.60); RED CELL DISTRI WIDTH 17.1 % (11.5-15.5)
[2020-06-06 06:23] LABS: CREATININE 1.4 mg/dL (0.5-1.0); MAGNESIUM 2.4 mg/dL (1.6-2.3); POTASSIUM 4.6 mmol/l (3.5-5.1)
[2020-06-06 06:32] LABS: INTERNATIONAL NORMALIZED RATIO 2.3 RATIO (0.7-1.3); PROTHROMBIN TIME 22.5 SECONDS (9.0-12.5)
[2020-06-06 07:47] VITALS: BP 104/60
--- NOTE | 2020-06-06 07:47 | NUR ---
PATIENT SITTING UP AT BEDSIDE. DENIES ANY PAIN AT THIS TIME. CLIENT RELATIONS SPECIALIST DONE SEE INTERVENTIONS. CALL LIGHT WITHIN REACH SIDERAILS UP X 2. PATIENT STATED "HOPEFULLY I WILL GO HOME TODAY".
[2020-06-06 09:00] VITALS: BP 104/60
[2020-06-06] MEDS ORDERED: CLARITHROMYCIN500 MG PO (09:56)
[2020-06-06] MEDS ORDERED: PANTOPRAZOLE SO40 M1 PO (09:56)
[2020-06-06] MEDS ORDERED: AMOXICILLIN500 M2 PO (09:56)
--- NOTE | 2020-06-06 10:45 | NUR ---
PATIENT D/C AT THIS TIME. PATIENT VERBALIZES UNDERSTANDING OF ALL D/C INSTRUCTIONS. PATIENT IV REMOVED AND NO VISIABLE SIGNS OF IV SITE INFECTION NOTED 2X2 MUSHTAQ AND SARAN AT THIS TIME INSTRUCTED PATIENT TO REMOVE ONCE SHE IS AT HOME.
--- NOTE | 2020-06-06 12:00 | NUR ---
Discharge instructions given. Patient verbalizes understanding of same. Discharged in stable condition via Wheelchair to Home with *Other. All belongings sent with pt.
== END 2020-06-06 11:57 | disposition home or self-care (01) | DRG 378 ==
LOC: ICU 17:19 → MS2 06-03 15:57
PROVIDERS: Internal Medicine; Nurse Practitioner; ADMIT Internal Medicine; ATTEND Internal Medicine
PROC: 30233K1 Transfusion of Nonautologous Frozen Plasma into Peripheral Vein, Percutaneous Approach (ICD-10-PCS; principal; 2020-05-29)
PROC: 30233N1 Transfusion of Nonautologous Red Blood Cells into Peripheral Vein, Percutaneous Approach (ICD-10-PCS; 2020-05-29)
PROC: 30233K1 Transfusion of Nonautologous Frozen Plasma into Peripheral Vein, Percutaneous Approach (ICD-10-PCS; 2020-05-29)
PROC: 30233N1 Transfusion of Nonautologous Red Blood Cells into Peripheral Vein, Percutaneous Approach (ICD-10-PCS; 2020-05-30)
PROC: 30233N1 Transfusion of Nonautologous Red Blood Cells into Peripheral Vein, Percutaneous Approach (ICD-10-PCS; 2020-05-30)
PROC: 0DJD8ZZ Inspection of Lower Intestinal Tract, Via Natural or Artificial Opening Endoscopic (ICD-10-PCS; 2020-05-31)
PROC: 0DB98ZX Excision of Duodenum, Via Natural or Artificial Opening Endoscopic, Diagnostic (ICD-10-PCS; 2020-05-31)
PROC: 0DB78ZX Excision of Stomach, Pylorus, Via Natural or Artificial Opening Endoscopic, Diagnostic (ICD-10-PCS; 2020-05-31)
PROC: 30233N1 Transfusion of Nonautologous Red Blood Cells into Peripheral Vein, Percutaneous Approach (ICD-10-PCS; 2020-06-04)
DX: K29.81 Duodenitis with bleeding (principal); D68.32 Hemorrhagic disorder due to extrinsic circulating anticoagulants; I48.92 Unspecified atrial flutter; I50.22 Chronic systolic (congestive) heart failure; D62 Acute posthemorrhagic anemia; K26.4 Chronic or unspecified duodenal ulcer with hemorrhage; K25.4 Chronic or unspecified gastric ulcer with hemorrhage; T45.515A Adverse effect of anticoagulants, initial encounter; E87.6 Hypokalemia; F31.9 Bipolar disorder, unspecified; M06.9 Rheumatoid arthritis, unspecified; I48.91 Unspecified atrial fibrillation; F17.210 Nicotine dependence, cigarettes, uncomplicated; B96.81 Helicobacter pylori [H. pylori] as the cause of diseases classified elsewhere; Z79.01 Long term (current) use of anticoagulants; Z95.2 Presence of prosthetic heart valve; Z20.828 Contact with and (suspected) exposure to other viral communicable diseases
CPT/HCPCS: J1650; P9016; S0164

== ENCOUNTER 2020-08-25 11:41 | Inpatient (IN) | payer MEDICARE, MEDICAID ==
[~2020-08-25] VITALS: Ht 160 cm; Wt 67.0 kg
[2020-08-25 10:30] VITALS: BP 97/54
[~2020-08-25 11:41] MED LIST changes: +AMOXICILLIN500 M2 PO; +CLARITHROMYCIN500 MG PO; +PANTOPRAZOLE SO40 M1 PO; +TEMAZEPAM30 MG PO; +TOPROL XL25 M1 PO
--- NOTE | 2020-08-25 12:35 | NUR ---
PT ARRIVED TO THE FLOOR AT 10.30 ON A STREACHER FROM ANOTHER FACILITY. AXOX3, DENIES PAIN AT THIS TIME. INTO BED WITH MIN ASST. O2 2L IN PLACE. VS TAKEN , NOTED B/P ON THE LOWER SIDE. PATIENT INFORMED THIS NURSE THAT SHE " RUNS LOW". ORIENTED TO CALL LIGHT TV BED AND TELEPHONE. REPOSITIONED FOR COMFORT, SIDE RAISL UP CALL LIGHT INREACH BED LOCKED IN LOW POSITION. ALL SAFTY MEASURES IN PLACE. NOTED PATIENT CAME WITH IV ACCESS IN THE RIGHT AC, FLUSH WITH OUT AND COMPLICATIONS. WILL CONTINUE TO MONITOR THE PATIENT.
[2020-08-25] MEDS ORDERED: WARFARIN7.5 MG PO (13:08)
[2020-08-25 14:53] VITALS: BP 109/68
[2020-08-25 15:00] LABS: HEMATOCRIT 34.3 % (37.0-47.0); IMMATURE GRANULOCYTES 0.4 % (0.0-5.0); MEAN CELL VOLUME 89.6 fL CALC (80.0-100.0); MEAN CORPUSCULAR HGB 29.2 pG CALC (26.0-32.0); MEAN CORPUSCULAR HGB CONC 32.7 g/dL CAL (32.0-36.0); NEUT# 10.12 thou/uL (2.00-7.15); RED BLOOD COUNT 3.83 mill/uL (4.20-5.60); RED CELL DISTRI WIDTH 14.9 % (11.5-15.5)
--- NOTE | 2020-08-25 15:00 | NUR ---
C/O PAIN AND NAUSEA MED PER ORDER. WILL CONTINUE TO MONIOTR THE PATIENT.
[2020-08-25 15:03] LABS: HEMOGLOBIN 11.2 g/dl (12.0-16.0)
[2020-08-25 15:30] LABS: ANION GAP 8 (6-22 (CALC)); BUN 16 mg/dL (7-17); BUN/CREATININE RATIO 16 (12-20 (CALC)); CARBON DIOXIDE 29 mmol/l (22-30); CHLORIDE 103 mmol/l (95-108); CREATININE 1.1 mg/dL (0.5-1.0); GFR 53 ML/MIN (>=60 (CALC)); GFR FOR AFR.AMER. > 60 ML/MIN (>=60 (CALC)); POTASSIUM 3.9 mmol/l (3.5-5.1); SODIUM 136 mmol/l (137-146)
[2020-08-25 20:00] VITALS: BP 93/58
--- NOTE | 2020-08-25 20:10 | NUR ---
PT REQUESTING "ALL" HER MEDICATIONS AT THIS TIME. SCHEDULED MEDICATIONS ADMINISTERED, EXCPET TOPROL D/T LOW BLOOD PRESSURE AND PENDING CLARIFICATION FROM PROVIDER, SEE E-MAR. PT MEDICATED WITH PRN TORADOL FOR C/O R-FLANK PAIN DESCRIBED "ACHING" WITH A 5/10 SEVERITY. SEE E-MAR. PHYSICAL ASSESMENT COMPLETE, SEE SHIFT ASSESSMENT. PLAN OF CARE EDUCATION PROVIDED, PT REMINDED LAMICTAL IS NOT ON [facility]S [facility] AND WOULD NEED TO BE JOHANNE FROM HOME. PT STATES SHE TAKES LAMICTAL "FOR HER MOOD" AND WILL BE "OK WITHOUT IT FOR A FEW DAYS". PT OTHERWISE VERBALIZES UNDERSTANDING AND DENIES QUESTIONS. PT IS ABLE TO MAKE NEEDS KNOWN, DENIES FURTHER NEEDS AT THIS TIME. CALL CARDONA WITHIN REACH, AGREES TO CALL PRN. BED LOCKED IN LOW POSITION WITH BEDRAILS UP X2.
--- NOTE | 2020-08-25 20:45 | NUR ---
REPORTED NIBP OF 93/58mmHg TO DR. LAURA, ORDER IS TO HOLD 2100 DOSE OF TOPROL.
--- NOTE | 2020-08-26 01:10 | NUR ---
PRN XANAX, TORADOL, AND ZOFRAN ADMINISTERED PER PT'S REQUEST. REPORTS ANXIETY WITH TROUBLE SLEEPING, R-FLANK PAIN, DESCRIBES ACHING AND 5/10 IN SEVERITY, AND NAUSEA W/O EMESIS.
--- NOTE | 2020-08-26 01:10 | NUR ---
PER ED MULTIPLE SPINDLE SCREW MACHINE OPERATOR TECH, EKG OBTAINED TO CONFIRM RYTHM, PT IS VENTRICULAR PACED AT 59bpm.
--- NOTE | 2020-08-26 02:11 | NUR ---
PT APPEARS TO BE SLEEPING COMFORTABLY, LAYING IN BED WITH EYES CLOSED, RESPIRATIONS REGULAR AND UNLABORED, NO APPARENT DISTRESS. CALL CARDONA REMAINS WITHIN REACH. BED REMAINS LOCKED IN LOW POSITION WITH BEDRAILS UP X2.
[2020-08-26 04:00] VITALS: BP 96/63
[2020-08-26 05:30] LABS: HEMATOCRIT 32.6 % (37.0-47.0); HEMOGLOBIN 10.5 g/dl (12.0-16.0); MEAN CELL VOLUME 91.3 fL CALC (80.0-100.0); MEAN CORPUSCULAR HGB 29.4 pG CALC (26.0-32.0); MEAN CORPUSCULAR HGB CONC 32.2 g/dL CAL (32.0-36.0); RED BLOOD COUNT 3.57 mill/uL (4.20-5.60); RED CELL DISTRI WIDTH 14.8 % (11.5-15.5)
[2020-08-26 05:44] LABS: INTERNATIONAL NORMALIZED RATIO 1.9 RATIO (0.7-1.3); PROTHROMBIN TIME 19.5 SECONDS (9.0-12.5)
[2020-08-26 05:54] LABS: ANION GAP 7 (6-22 (CALC)); BUN 14 mg/dL (7-17); BUN/CREATININE RATIO 20 (12-20 (CALC)); CARBON DIOXIDE 27 mmol/l (22-30); CHLORIDE 106 mmol/l (95-108); CREATININE 0.7 mg/dL (0.5-1.0); GFR > 60 ML/MIN (>=60 (CALC)); GFR FOR AFR.AMER. > 60 ML/MIN (>=60 (CALC)); MAGNESIUM 1.8 mg/dL (1.6-2.3); POTASSIUM 3.2 mmol/l (3.5-5.1); SODIUM 137 mmol/l (137-146)
[2020-08-26 07:15] VITALS: BP 106/69
--- NOTE | 2020-08-26 07:15 | NUR ---
PATIENT IN BED AT THIS TIME FLAKEBOARD LINE TENDER DONE SEE INTERVENTIONS. SHRUTI ZAHIRA ANY PAIN AT THIS TIME. SIDERAILS ARE UP X 2 CALL LIGHT AND PERSONAL ITEMS AT BEDSIDE.
--- NOTE | 2020-08-26 11:35 | NUR ---
PATIENT SITTING UP AT BEDSIDE EATING LUNCH AT THIS TIME. PATIENT DENEIS ANY NEEDS AND STATE HER PAIN AT THIS MOMENT IS A "0". SIDERAILS ARE UP X 2 CALL LIGHT AND PERSONAL ITEMS ARE WITHIN REACH.
--- NOTE | 2020-08-26 15:59 | NUR ---
PATIENT LAYING IN BED AT THIS TIME PATIENT STATES SHE FEELS "REALLY GOOD, AND WANT TO GO HOME TOMORROW". PATIENT DENIES ANY NEEDS CURRENTLY AND SIDERAILS ARE UP X2 AND CALL LIGHT IS WITHIN REACH WELL PERSONAL ITEMS.
[2020-08-26 16:30] VITALS: BP 102/63
--- NOTE | 2020-08-26 19:00 | NUR ---
REPORT RECEIVED FROM Raquel SEPULVEDA RN, CARE OF PT ASSUMED AT THIS TIME.
[2020-08-26 19:50] VITALS: BP 108/71
--- NOTE | 2020-08-26 20:10 | NUR ---
PT LAYING IN BED, AWAKE AND ALERT, RESPIRATIONS REGULAR AND UNLABORED. APPEARS COMFORTABLE AND IN NO DISTRESS. PHYSICAL ASSESMENT COMPLETED, SEE SHIFT ASSESSMENT. SCHEDULED MEDICATIONS ADMINISTERED WITH PRN RESTORIL AND XANAX REQUESTED BY PATIENT. PT DENIES FURTHER NEEDS AT THIS TIME. PLAN OF CARE REVIEWED, PT VERBALIZES UNDERSTANDING AND DENIES QUESTIONS. CALL CARDONA WITHIN REACH, AGREES TO CALL PRN. BED LOCKED IN LOW POSITION WITH BEDRAIL X2.
[2020-08-27 04:00] VITALS: BP 99/62
[2020-08-27 06:11] LABS: HEMATOCRIT 30.8 % (37.0-47.0); MEAN CELL VOLUME 91.4 fL CALC (80.0-100.0); MEAN CORPUSCULAR HGB 29.7 pG CALC (26.0-32.0); MEAN CORPUSCULAR HGB CONC 32.5 g/dL CAL (32.0-36.0); RED BLOOD COUNT 3.37 mill/uL (4.20-5.60); RED CELL DISTRI WIDTH 14.5 % (11.5-15.5)
[2020-08-27 06:28] LABS: ANION GAP 7 (6-22 (CALC)); BUN 13 mg/dL (7-17); BUN/CREATININE RATIO 16 (12-20 (CALC)); CARBON DIOXIDE 28 mmol/l (22-30); CHLORIDE 103 mmol/l (95-108); CREATININE 0.8 mg/dL (0.5-1.0); GFR > 60 ML/MIN (>=60 (CALC)); GFR FOR AFR.AMER. > 60 ML/MIN (>=60 (CALC)); POTASSIUM 3.4 mmol/l (3.5-5.1); SODIUM 135 mmol/l (137-146)
[2020-08-27 06:29] LABS: INTERNATIONAL NORMALIZED RATIO 1.3 RATIO (0.7-1.3)
[2020-08-27 07:15] VITALS: BP 118/72
--- NOTE | 2020-08-27 07:15 | NUR ---
PATIENT RESTING IN BED ALERT AND ORIENTED X3 DENIES ANY PAIN AT THIS TIME. SR. MEDIA MANAGER DONE SEE INTERVENTIONS. PATIENT STATES "I AM GOING HOME TODAY I FEEL MUCH MUCH BETTER". SIDERAILS ARE UP X 2 CALL LIGHT AND PERSONAL ITEMS WITHIN REACH. PATIENT DENEIS ANY URINARY DIFFICULTIES AND OR PAIN AT THIS TIME.
[2020-08-27 08:07] VITALS: BP 118/72
[2020-08-27] MEDS ORDERED: KLOR-CON M2020 MEQ PO (11:58)
[2020-08-27] MEDS ORDERED: OMNICEF300 MG PO (11:59)
--- NOTE | 2020-08-27 12:22 | NUR ---
PATIENT D/C AT THIS TIME PATIENT VERBALIZES UNDERSTANDING OF D/C AND INSTRUCTIONS AT THIS TIME. IV WAS REMOVED CANNULA IN TIP INTACT.
--- NOTE | 2020-08-27 13:38 | NUR ---
Discharge instructions given. Patient verbalizes understanding of same. Discharged in stable condition via Wheelchair to Home with *Other. All belongings sent with pt.
== END 2020-08-27 13:38 | disposition home or self-care (01) | DRG 690 ==
LOC: MS2 11:41
PROVIDERS: Nurse Practitioner; ADMIT Internal Medicine; ATTEND Internal Medicine
DX: N10 Acute pyelonephritis (principal); I50.22 Chronic systolic (congestive) heart failure; N13.6 Pyonephrosis; E87.6 Hypokalemia; N17.9 Acute kidney failure, unspecified; I95.9 Hypotension, unspecified; F31.9 Bipolar disorder, unspecified; Z79.01 Long term (current) use of anticoagulants; Z95.2 Presence of prosthetic heart valve
CPT/HCPCS: J1650

== ENCOUNTER 2021-05-08 17:01 | Emergency (ER) | payer MEDICARE, MEDICAID ==
[~2021-05-08] VITALS: Ht 160 cm; Wt 75.0 kg
[~2021-05-08 17:01] MED LIST changes: +KLOR-CON M2020 MEQ PO; +OMNICEF300 MG PO
[2021-05-08 18:50] LABS: IMMATURE GRANULOCYTES 0.2 % (0.0-5.0); MEAN CORPUSCULAR HGB 28.3 pG CALC (26.0-32.0); MEAN CORPUSCULAR HGB CONC 31.5 g/dL CAL (32.0-36.0); NEUT# 2.52 thou/uL (2.00-7.15); RED BLOOD COUNT 4.48 mill/uL (4.20-5.60); RED CELL DISTRI WIDTH 15.7 % (11.5-15.5)
[2021-05-08 18:57] LABS: HEMATOCRIT 40.3 % (37.0-47.0); HEMOGLOBIN 12.7 g/dl (12.0-16.0)
[2021-05-08 19:08] LABS: ALBUMIN 4.2 g/dL (3.2-5.0); ALKALINE PHOSPHATASE 75 u/l (38-126); ANION GAP 10 (6-22 (CALC)); BILIRUBIN, TOTAL 0.5 mg/dL (0.0-1.4); BUN 16 mg/dL (7-17); BUN/CREATININE RATIO 17 (12-20 (CALC)); CARBON DIOXIDE 32 mmol/l (22-30); CHLORIDE 102 mmol/l (95-108); CREATININE 0.9 mg/dL (0.5-1.0); GFR > 60 ML/MIN (>=60 (CALC)); GFR FOR AFR.AMER. > 60 ML/MIN (>=60 (CALC)); LIPASE 110 u/l (23-300); POTASSIUM 4.3 mmol/l (3.5-5.1); SGOT/AST 27 u/l (14-36); SODIUM 140 mmol/l (137-146); TOTAL PROTEIN 7.4 g/dL (6.3-8.2)
[2021-05-08 19:16] LABS: INTERNATIONAL NORMALIZED RATIO 2.3 RATIO (0.7-1.3); PROTHROMBIN TIME 22.6 SECONDS (9.0-12.5)
[2021-05-08] MEDS ORDERED: LORTAB 5/3255 MG PO (20:34)
[2021-05-08] MEDS ORDERED: [UNRECOGNIZED DRUG - SUPPLY] XX (20:38)
[2021-05-08 20:58] LABS: URINE BILIRUBIN - DIPSTICK NEGATIVE (NEGATIVE); URINE BLOOD DIPSTICK NEGATIVE (NEGATIVE); URINE COLOR YELLOW; URINE GLUCOSE - DIPSTICK NEGATIVE (NEGATIVE); URINE KETONE NEGATIVE (NEGATIVE); URINE LEUK ESTERASE NEGATIVE (NEGATIVE); URINE NITRITE - DIPSTICK NEGATIVE (Negative); URINE PH 5.5 (4.5-8.0); URINE PROTEIN - DIPSTICK NEGATIVE (NEG-TRACE); URINE SPECIFIC GRAVITY >=1.030; URINE UROBILINOGEN - DIPSTICK 0.2 E.U./dL (0.2)
[2021-05-08 21:41] VITALS: BP 104/54
== END 2021-05-08 21:15 | disposition home or self-care (01) ==
LOC: ED 17:01
PROVIDERS: Family Medicine
DX: M17.0 Bilateral primary osteoarthritis of knee (principal); F31.9 Bipolar disorder, unspecified; F17.200 Nicotine dependence, unspecified, uncomplicated; Z87.11 Personal history of peptic ulcer disease; Z79.01 Long term (current) use of anticoagulants; Z95.2 Presence of prosthetic heart valve

== ENCOUNTER 2021-11-26 12:21 | Observation (INO) | payer MEDICARE, MEDICAID ==
[~2021-11-26] VITALS: Ht 160 cm; Wt 72.7 kg
[2021-11-26] VITALS (29 sets, daily range): BP systolic 77–127; BP diastolic 47–73
[~2021-11-26 12:21] MED LIST changes: -LAMICTAL100 MG PO; +LAMICTAL150 M1 PO; +[UNRECOGNIZED DRUG - SUPPLY] XX
[2021-11-26] MEDS ORDERED: K-TAB20 MEQ PO (12:34)
[2021-11-26] MEDS ORDERED: PANTOPRAZOLE SO40 M3 PO (12:36)
[2021-11-26 13:13] LABS: IMMATURE GRANULOCYTES 0.2 % (0.0-5.0); MEAN CORPUSCULAR HGB 27.5 pG CALC (26.0-32.0); MEAN CORPUSCULAR HGB CONC 31.6 g/dL CAL (32.0-36.0); NEUT# 4.78 thou/uL (2.00-7.15); RED BLOOD COUNT 4.15 mill/uL (4.20-5.60); RED CELL DISTRI WIDTH 14.8 % (11.5-15.5)
[2021-11-26 13:19] LABS: HEMATOCRIT 36.1 % (37.0-47.0); HEMOGLOBIN 11.4 g/dl (12.0-16.0)
[2021-11-26 13:42] LABS: INTERNATIONAL NORMALIZED RATIO 2.4 RATIO (0.7-1.3); PROTHROMBIN TIME 24.1 SECONDS (9.0-12.5)
[2021-11-26 13:45] LABS: ALBUMIN 4.4 g/dL (3.2-5.0); ALKALINE PHOSPHATASE 89 u/l (38-126); ANION GAP 10 (6-22 (CALC)); BILIRUBIN, TOTAL 0.6 mg/dL (0.0-1.4); BUN 14 mg/dL (7-17); BUN/CREATININE RATIO 13 (12-20 (CALC)); CARBON DIOXIDE 27 mmol/l (22-30); CHLORIDE 102 mmol/l (95-108); CREATININE 1.1 mg/dL (0.5-1.0); ETHYL ALCOHOL 0 mg/dl (0-30); GFR FOR AFR.AMER. > 60 ML/MIN (>=60 (CALC)); GFR OTHER RACES 53 ML/MIN (>=60 (CALC)); LIPASE 177 u/l (23-300); POTASSIUM 3.6 mmol/l (3.5-5.1); SGOT/AST 29 u/l (14-36); SODIUM 136 mmol/l (137-146); TOTAL PROTEIN 7.7 g/dL (6.3-8.2)
[2021-11-26 13:57] LABS: MYOGLOBIN 31 ng/mL (0 - 62)
[2021-11-26 13:58] LABS: URINE BILIRUBIN - DIPSTICK NEGATIVE (NEGATIVE); URINE BLOOD DIPSTICK LARGE (NEGATIVE); URINE GLUCOSE - DIPSTICK NEGATIVE (NEGATIVE); URINE KETONE NEGATIVE (NEGATIVE); URINE LEUK ESTERASE NEGATIVE (NEGATIVE); URINE PH 5.5 (4.5-8.0); URINE PROTEIN - DIPSTICK 30 mg/dL (NEG-TRACE); URINE UROBILINOGEN - DIPSTICK 0.2 E.U./dL (0.2)
[2021-11-26 14:00] LABS: URINE COLOR PINK; URINE NITRITE - DIPSTICK NEGATIVE (Negative)
[2021-11-26 14:06] LABS: URINE SQUAMOUS EPITHELIAL CELL FEW EPI/hpf (0-FEW)
[2021-11-27] VITALS (7 sets, daily range): BP systolic 87–105; BP diastolic 45–60
[2021-11-27 06:56] LABS: INTERNATIONAL NORMALIZED RATIO 2.2 RATIO (0.7-1.3); PROTHROMBIN TIME 22.3 SECONDS (9.0-12.5)
[2021-11-27 07:15] LABS: CHOLESTEROL HDL RATIO 4.8 (<4.4 (CALC)); MAGNESIUM 2.2 mg/dL (1.6-2.3)
[2021-11-27] MEDS ORDERED: PROZAC40 MG PO (10:02)
[2021-11-27] MEDS ORDERED: TRAZODONE HYDR150 MG PO (10:04)
[2021-11-27] MEDS ORDERED: PERCOCET 5/325M1 TAB PO (10:08)
== END 2021-11-27 15:51 | disposition home or self-care (01) ==
LOC: ED 12:21 → ED-I 13:17 → ED 15:36 → MS2 15:37
PROVIDERS: Nurse Practitioner; ADMIT Internal Medicine; ATTEND Internal Medicine
DX: R07.9 Chest pain, unspecified (principal); M54.50 Low back pain, unspecified; S80.211A Abrasion, right knee, initial encounter; K59.00 Constipation, unspecified; I50.22 Chronic systolic (congestive) heart failure; I48.91 Unspecified atrial fibrillation; F31.9 Bipolar disorder, unspecified; K21.9 Gastro-esophageal reflux disease without esophagitis; F41.9 Anxiety disorder, unspecified; I25.10 Atherosclerotic heart disease of native coronary artery without angina pectoris; M19.90 Unspecified osteoarthritis, unspecified site; F17.200 Nicotine dependence, unspecified, uncomplicated; W01.0XXA Fall on same level from slipping, tripping and stumbling without subsequent striking against object, initial encounter; Y92.009 Unspecified place in unspecified non-institutional (private) residence as the place of occurrence of the external cause; Z79.01 Long term (current) use of anticoagulants; Z95.2 Presence of prosthetic heart valve; Z20.822 Contact with and (suspected) exposure to COVID-19
CPT/HCPCS: Q9967

== ENCOUNTER 2022-06-23 18:55 | Observation (INO) | payer MEDICARE, MEDICAID ==
[~2022-06-23] VITALS: Ht 160 cm; Wt 77.5 kg
[2022-06-23] VITALS (8 sets, daily range): BP systolic 101–117; BP diastolic 55–77
[~2022-06-23 18:55] MED LIST changes: +K-TAB20 MEQ PO; +PANTOPRAZOLE SO40 M3; +PERCOCET 5/325M1 TAB PO; +TRAZODONE HYDR150 MG PO
[2022-06-23] MEDS ORDERED: WARFARIN5 MG PO (19:53)
[2022-06-23 20:48] LABS: BASO% 0.2 % (0-3); EOS% 3.1 % (0-8); HEMATOCRIT 26.7 % (37.0-47.0); HEMOGLOBIN 8.3 g/dl (12.0-16.0); IMMATURE GRANULOCYTES 0.2 % (0.0-5.0); LYMPH% 24.6 % (15-41); MEAN CELL VOLUME 78.5 fL CALC (80.0-100.0); MEAN CORPUSCULAR HGB 24.4 pG CALC (26.0-32.0); MEAN CORPUSCULAR HGB CONC 31.1 g/dL CAL (32.0-36.0); MONO% 8.1 % (2-13); NEUT# 3.06 thou/uL (2.00-7.15); NEUT% 63.8 % (42-76); RED BLOOD COUNT 3.4 mill/uL (4.20-5.60); RED CELL DISTRI WIDTH 17.1 % (11.5-15.5)
[2022-06-23 21:41] LABS: ALBUMIN 3.9 g/dL (3.2-5.0); ALKALINE PHOSPHATASE 78 u/l (38-126); ANION GAP 7 (6-22 (CALC)); BUN 17 mg/dL (7-17); BUN/CREATININE RATIO 16 (12-20 (CALC)); CARBON DIOXIDE 28 mmol/l (22-30); CHLORIDE 106 mmol/l (95-108); CREATININE 1.1 mg/dL (0.5-1.0); GFR FOR AFR.AMER. > 60 ML/MIN (>=60 (CALC)); GFR OTHER RACES 53 ML/MIN (>=60 (CALC)); POTASSIUM 3.8 mmol/l (3.5-5.1); SGOT/AST 24 u/l (14-36); SODIUM 137 mmol/l (137-146); TOTAL PROTEIN 6.8 g/dL (6.3-8.2)
[2022-06-23 21:42] LABS: BILIRUBIN, TOTAL 0.2 mg/dL (0.0-1.4)
[2022-06-23 21:44] LABS: INTERNATIONAL NORMALIZED RATIO 6.6 RATIO (0.7-1.3); PROTHROMBIN TIME 60.4 SECONDS (9.0-12.5)
[2022-06-23 22:27] LABS: URINE BILIRUBIN - DIPSTICK NEGATIVE (NEGATIVE); URINE BLOOD DIPSTICK NEGATIVE (NEGATIVE); URINE COLOR YELLOW; URINE GLUCOSE - DIPSTICK NEGATIVE (NEGATIVE); URINE KETONE NEGATIVE (NEGATIVE); URINE LEUK ESTERASE NEGATIVE (NEGATIVE); URINE PH 5.5 (4.5-8.0); URINE PROTEIN - DIPSTICK NEGATIVE (NEG-TRACE); URINE UROBILINOGEN - DIPSTICK 0.2 E.U./dL (0.2)
[2022-06-23 22:28] LABS: URINE NITRITE - DIPSTICK NEGATIVE (Negative)
[2022-06-24] VITALS (21 sets, daily range): BP systolic 91–130; BP diastolic 40–71
[2022-06-24 08:20] LABS: INTERNATIONAL NORMALIZED RATIO 1.9 RATIO (0.7-1.3); PROTHROMBIN TIME 18.4 SECONDS (9.0-12.5)
== END 2022-06-24 15:05 | disposition home or self-care (01) ==
LOC: ED 18:55 → ED-I 06-24 00:16 → ED 06-24 00:29 → MS2 06-24 00:30
PROVIDERS: Emergency Medicine; Internal Medicine; ADMIT Internal Medicine; ATTEND Internal Medicine
DX: R07.9 Chest pain, unspecified (principal); R79.1 Abnormal coagulation profile; T45.515A Adverse effect of anticoagulants, initial encounter; D64.9 Anemia, unspecified; I48.91 Unspecified atrial fibrillation; I50.22 Chronic systolic (congestive) heart failure; F31.9 Bipolar disorder, unspecified; F17.210 Nicotine dependence, cigarettes, uncomplicated; Z79.01 Long term (current) use of anticoagulants; Z95.2 Presence of prosthetic heart valve; Z87.11 Personal history of peptic ulcer disease; Z87.01 Personal history of pneumonia (recurrent); Z20.822 Contact with and (suspected) exposure to COVID-19
CPT/HCPCS: Q9967

== ENCOUNTER 2022-10-22 09:50 | Observation (INO) | payer MEDICARE, MEDICAID ==
[~2022-10-22] VITALS: Ht 160 cm; Wt 70.0 kg
[2022-10-22 10:27] LABS: BASO% 0.4 % (0-3); EOS% 1.9 % (0-8); HEMATOCRIT 32.2 % (37.0-47.0); HEMOGLOBIN 9.6 g/dl (12.0-16.0); IMMATURE GRANULOCYTES 0.2 % (0.0-5.0); LYMPH% 19.5 % (15-41); MEAN CELL VOLUME 74.9 fL CALC (80.0-100.0); MEAN CORPUSCULAR HGB 22.3 pG CALC (26.0-32.0); MEAN CORPUSCULAR HGB CONC 29.8 g/dL CAL (32.0-36.0); MONO% 5.8 % (2-13); NEUT# 3.51 thou/uL (2.00-7.15); NEUT% 72.2 % (42-76); RED BLOOD COUNT 4.3 mill/uL (4.20-5.60)
[2022-10-22 10:38] LABS: ALBUMIN 4.3 g/dL (3.2-5.0); ALKALINE PHOSPHATASE 93 u/l (38-126); ANION GAP 13 (6-22 (CALC)); BUN 17 mg/dL (7-17); BUN/CREATININE RATIO 18 (12-20 (CALC)); CARBON DIOXIDE 26 mmol/l (22-30); CHLORIDE 104 mmol/l (95-108); CREATININE 0.9 mg/dL (0.5-1.0); GFR FOR AFR.AMER. > 60 ML/MIN (>=60 (CALC)); GFR OTHER RACES > 60 ML/MIN (>=60 (CALC)); INTERNATIONAL NORMALIZED RATIO 1.4 RATIO (0.7-1.3); MAGNESIUM 1.8 mg/dL (1.6-2.3); POTASSIUM 3.6 mmol/l (3.5-5.1); SGOT/AST 36 u/l (14-36); SODIUM 140 mmol/l (137-146); TOTAL PROTEIN 7.1 g/dL (6.3-8.2)
[2022-10-22 10:39] LABS: BILIRUBIN, TOTAL 0.7 mg/dL (0.02-1.3)
[2022-10-22 11:16] LABS: URINE BILIRUBIN - DIPSTICK NEGATIVE (NEGATIVE); URINE BLOOD DIPSTICK MODERATE (NEGATIVE); URINE COLOR YELLOW; URINE GLUCOSE - DIPSTICK NEGATIVE (NEGATIVE); URINE KETONE NEGATIVE (NEGATIVE); URINE LEUK ESTERASE NEGATIVE (NEGATIVE); URINE PROTEIN - DIPSTICK NEGATIVE (NEG-TRACE); URINE SPECIFIC GRAVITY <=1.005; URINE UROBILINOGEN - DIPSTICK 0.2 E.U./dL (0.2)
[2022-10-22 11:23] LABS: URINE NITRITE - DIPSTICK NEGATIVE (Negative)
[2022-10-22 11:24] LABS: URINE EPITHELIAL CELLS FEW EPI/hpf (0-FEW)
[2022-10-22] MEDS ORDERED: PROTONIX40 M2 PO (15:27)
[2022-10-22 15:38] VITALS: BP 105/55
[2022-10-22 19:33] VITALS: BP 113/68
[2022-10-22 21:39] VITALS: BP 124/75
[2022-10-22 23:34] VITALS: BP 91/50
[2022-10-23 03:34] VITALS: BP 81/46
[2022-10-23 03:35] VITALS: BP 101/54
[2022-10-23 05:20] LABS: BASO% 0.5 % (0-3); EOS% 2.4 % (0-8); IMMATURE GRANULOCYTES 0.2 % (0.0-5.0); LYMPH% 23.7 % (15-41); MEAN CELL VOLUME 76.7 fL CALC (80.0-100.0); MEAN CORPUSCULAR HGB 22.3 pG CALC (26.0-32.0); MONO% 7.6 % (2-13); NEUT# 2.68 thou/uL (2.00-7.15); NEUT% 65.6 % (42-76); RED BLOOD COUNT 4.04 mill/uL (4.20-5.60); RED CELL DISTRI WIDTH 17.7 % (11.5-15.5)
[2022-10-23 05:39] LABS: INTERNATIONAL NORMALIZED RATIO 1.3 RATIO (0.7-1.3); PROTHROMBIN TIME 12.5 SECONDS (9.0-12.5)
[2022-10-23 05:51] LABS: ALBUMIN 3.8 g/dL (3.2-5.0); ALKALINE PHOSPHATASE 86 u/l (38-126); ANION GAP 8 (6-22 (CALC)); BILIRUBIN, TOTAL 0.6 mg/dL (0.02-1.3); BUN 15 mg/dL (7-17); BUN/CREATININE RATIO 19 (12-20 (CALC)); CARBON DIOXIDE 28 mmol/l (22-30); CHLORIDE 107 mmol/l (95-108); CREATININE 0.8 mg/dL (0.5-1.0); GFR FOR AFR.AMER. > 60 ML/MIN (>=60 (CALC)); GFR OTHER RACES > 60 ML/MIN (>=60 (CALC)); POTASSIUM 3.3 mmol/l (3.5-5.1); SGOT/AST 28 u/l (14-36); SODIUM 140 mmol/l (137-146); TOTAL PROTEIN 6.7 g/dL (6.3-8.2)
[2022-10-23 06:32] VITALS: BP 84/47
[2022-10-23 11:22] VITALS: BP 101/56
== END 2022-10-23 13:20 | disposition home or self-care (01) ==
LOC: ED 09:50 → ED-I 13:00 → ED 14:05 → MS2 14:06
PROVIDERS: Family Medicine; Nurse Practitioner Family; ADMIT Internal Medicine; ATTEND Internal Medicine
DX: I95.9 Hypotension, unspecified (principal); I10 Essential (primary) hypertension; I48.91 Unspecified atrial fibrillation; I50.9 Heart failure, unspecified; F31.9 Bipolar disorder, unspecified; K64.9 Unspecified hemorrhoids; F17.200 Nicotine dependence, unspecified, uncomplicated; Z87.11 Personal history of peptic ulcer disease; Z79.01 Long term (current) use of anticoagulants; Z95.2 Presence of prosthetic heart valve; Z87.19 Personal history of other diseases of the digestive system